=== PATIENT | female | born 1955 | race Caucasian/White ===

== ENCOUNTER 2024-02-09 14:03 | Emergency (ER) | payer MEDICARE, MEDICAID, SELFPAY ==
[2024-02-09 14:05] VITALS: BP 124/83; PULSE 76; RESP 18; TEMP 36.2; O2SAT 97; BMI 25.5
--- NOTE | 2024-02-09 14:42 | EKG12_ITS ---
Test Reason : GENERAL Blood Pressure : / mmHG Vent. Rate : 068 BPM Atrial Rate : 068 BPM P-R Int : 150 ms QRS Dur : 080 ms QT Int : 414 ms P-R-T Axes : 071 -22 062 degrees QTc Int : 440 ms Normal sinus rhythm Low voltage QRS Borderline ECG Confirmed by MILA CARL, XENA ([id number]), book editor ISMAEL RAHMAN ([id number]) on 02/10/2024 10:20:41 AM Referred By: Confirmed By:XENA ZARAGOZA MD
--- NOTE | 2024-02-09 14:45 | EX.ED.DYSGE1 ---
HPI History of Present Illness Chief Complaint: Dizziness Narrative Narrative: 68-year-old female presenting with vertiginous dizziness symptoms. She states it started this morning when she woke up and she turned her head she noted the room was bending and she had difficulty getting to the bathroom when she felt nauseous. This has been progressive throughout the day. Patient states she has had this once before but it did not last very long as she never had it evaluated. Denies known history of vertigo. She is concerned because she has a history of A-fib and was concerned she might be in atrial fibrillation. She denies chest pain or shortness of breath however. Denies extreme headache. She complains a lot of nausea. Patient states that she has had some problems with sugars in the past but nothing where she needed to be medicated. She states she ate a pancake with syrup this morning at 11 and he is concerned her sugars might be high. Patient states she is very thirsty. PFSH PFS Medical History Afib Carpal tunnel syndrome on both sides Prediabetes Home Medications ?Medication ?Instructions ?Recorded ?Last Taken ?Type meclizine 25 mg tablet 25 mg PO 4X/DAY PRN PRN Dizziness 02/09/24 Unknown Rx #20 tabs Allergy/AdvReac Type Severity Reaction Status Date / Time codeine Allergy Anaphylaxis Verified 02/09/24 14:05 Penicillins Allergy Anaphylaxis Verified 02/09/24 14:05 Family History Other Myocardial infarction Social History Smoking Status: Never smoker ROS ROS ED Constitutional Constitutional ED: Denies chills, fever(s) or sweats Eyes Eyes: Denies blurry vision or change in vision ENT ENT ED: Reports other Details: Vertiginous dizziness ; Denies ear pain or sore throat Cardiovascular Cardiovascular: Denies chest pain, palpitations or racing heartbeat Respiratory/Chest Respiratory/Chest: Denies cough, dyspnea or sputum Gastrointestinal Gastrointestinal: Reports nausea; Denies abdominal pain, constipation, diarrhea or vomiting Genitourinary Genitourinary ED: Denies dysuria, hematuria or urinary frequency Musculoskeletal Musculoskeletal: Denies arthralgias, myalgias or neck pain Integumentary Denies abscess, Abrasions or rash Neurologic Neurologic: Denies headache(s), paresthesias or weakness Psychiatric Psychiatric: Denies anxiety, depression, suicidal ideation or suicidal thoughts Endocrine Endocrinology: Denies polydipsia or polyuria EXAM Physical Exam Const Vital Signs: 02/09/24 14:05 02/09/24 14:42 02/09/24 16:00 Temperature 97.1 F L Temperature Source Temporal Pulse Rate 76 81 Respiratory Rate 18 18 Blood Pressure 124/83 H 104/66 Blood Pressure Mean 96 78 Pulse Ox 97 96 Oxygen Delivery Method Room Air Room Air Room Air Positive well nourished General Appearance ED: NAD; Negative for pallor HEENT Reports moist mucous membranes HEENT Narrative: Positive Francesca-Hallpike Eyes Eyes Narrative: Nystagmus noted on exam left [place]-Hallpike General Eye ED: Yes pale conjunctiva Resp normal respiratory effort and clear to auscultation bilaterally Auscultation: Negative for rales, rhonchi or wheezes Cardio regular rate and regular rhythm GI normal to inspection, nondistended, normoactive bowel sounds Neuro oriented x3 and CN's II-XII intact bilaterally Sensorium / Orientation: alert Motor Exam: strength 5/5 throughout Psych mental status grossly normal Skin no rashes or lesions noted General Skin Exam: Negative for jaundice or pallor MDM MDM MDM Narrative Medical decision making narrative: Patient presenting with vertiginous dizziness. She is also concerned about her blood sugar and A-fib. Differential includes A-fib, dysrhythmia, dehydration, anemia, electrolyte abnormalities, hyperglycemia, hypoglycemia, vertigo, pneumonia. CBC will be obtained to assess white blood cell count, hemoglobin, platelets. BMP to assess renal function, electrolytes, glucose. High-sensitivity troponin and EKG to assess for ischemia/dysrhythmia. Chest x-ray to rule out pneumonia. IV line was established. Patient given meclizine and Phenergan. Patient was given a liter normal saline. I do not believe she needs a CT of her brain as she has no focal neuro deficits or lateralizing signs or symptoms. Will reevaluate after medicating. EKG shows a normal sinus rhythm at 60 bpm without ischemic change or dysrhythmia interpreted by myself. Chest x-ray interpreted by myself shows no acute cardiopulmonary process. Radiologist interprets this and agrees. CBC shows normal white blood cell count at 4.8. Hemoglobin 13.9. Platelets normal at 217. Renal function electrolytes within normal limits. High-sensitivity troponin less than 3. Glucose was normal at 98. On reevaluation patient is able to ambulate her dizziness is improved. I will discharge home with meclizine I feel she has benign positional vertigo. Return precautions were discussed. Impression: 1. Benign positional vertigo 2. Nausea Lab Data Labs: Laboratory Results - last 24 hr 02/09/24 02/09/24 15:00 15:37 WBC 4.8 RBC 4.70 Hgb 13.9 Hct 42.4 MCV 90.2 MCH 29.6 MCHC 32.8 RDW Std Deviation 43.2 RDW Coeff of Rosalba 13.0 Plt Count 217 MPV 9.4 Immature Gran % (Auto) 0.000 Neut % (Auto) 42.4 L Lymph % (Auto) 45.7 H Burnet % (Auto) 9.6 Eos % (Auto) 1.5 Baso % (Auto) 0.8 Absolute Neuts (auto) 2.0 Absolute Lymphs (auto) 2.19 Nucleated RBC % 0 Sodium 138 Potassium 3.6 Chloride 104 Carbon Dioxide 25.0 Anion Gap 9 BUN 14 Creatinine 0.76 Estim Creat Clear Calc 67.89 Est GFR (MDRD) Af Amer 97 Est GFR (MDRD) Non-Af 80 BUN/Creatinine Ratio 18.4 Glucose 98 Calcium 9.6 Troponin I High Sens < 3 L POC Glucose 84 Radiography Diagnostic Testing: Clinical Impression(s) from Imaging Studies Chest X-Ray 02/09/24 15:15 IMPRESSION: No acute abnormality is seen. Electronically Signed: Ziggy Smith MD at 15:37 EDT , Discharge Plan Triage Chief Complaint: Dizziness ED Provider: Salazar Delgado Dx/Rx/DC Orders Instructions: ED BPV Vertigo Prescriptions: New meclizine 25 mg tablet 25 mg PO 4X/DAY PRN PRN (Reason: Dizziness) Qty: 20 0RF Primary Care Provider: SAMANTHA QUILES MD Referrals: SAMANTHA QUILES MD [Other] Print Language: Ethiopian Disposition Disposition: Home, Self Care
--- NOTE | 2024-02-09 14:54 | NURSING ---
NO OLD EKGS
[2024-02-09 15:14] LABS: Absolute Lymphocyte Count 2.19 X10^3/uL (0.83-4.51); Basophil# 0.04 X10^3/uL; Basophil% 0.8 % (0-1); Eosinophil# 0.07 X10^3/uL; Eosinophils% 1.5 % (0-5); Hematocrit 42.4 % (37-47); Hemoglobin 13.9 g/dL (12.0-15.0); Lymphocyte # 2.19 X10^3/ul (0.83-4.51); Lymphocyte % 45.7 % (19-41); Mean Corp Hgb Conc 32.8 g/dL (32-36); Mean Corpuscular Hgb 29.6 pg (27.0-32.0); Mean Corpuscular Volume 90.2 fL (81-99); Mean Platelet Vol. 9.4 fl (6.2-12.0); Monocyte# 0.46 X10^3/uL; Monocyte% 9.6 % (0-10); NRBC Flagged by Analyzer 0 % (0-5); Neutrophil # 2.03 X10^3/uL (2.7-7.7); Neutrophil % 42.4 % (47-70); Platelet Count 217 K/mm3 (150-450); RBC Distribution Width SD 43.2 fl (35.1-43.9); White Blood Count 4.8 K/mm3 (4.4-11.0)
[2024-02-09] MEDS: Meclizine HCl 25 MG Tablet PO (15:14)
--- NOTE | 2024-02-09 15:15 | RAD_ITS ---
STUDY: X-RAY CHEST REASON FOR EXAM: Female, 68 years old. Chest pain TECHNIQUE: Single AP portable view of the chest. COMPARISON: None. FINDINGS: EKG electrodes are seen. The lungs are clear and expanded. There is no demonstrated pleural abnormality. Normal size heart. Normal mediastinum and maria elena. Normal visualized pulmonary arteries. There is atherosclerotic calcification of the aortic arch with tortuosity. There are diffuse degenerative changes of the visualized thoracic spine. There is degenerative osteoarthritis of the bilateral shoulders. There is no demonstrated abnormality of the visualized soft tissue structures of the upper abdomen. RAD/Chest 1 View (Portable) IMPRESSION: No acute abnormality is seen. Electronically Signed: Ziggy Smith MD at 15:37 EDT ,
[2024-02-09] MEDS: proMETHazine 25 MG/ML Syringe 12.5 MG IM (15:16)
[2024-02-09] MEDS: 0.9% Normal Saline (1000mL) 1,000 ML 999 ML IV (15:17)
--- NOTE | 2024-02-09 15:54 | NURSING ---
NO OLD EKGS
[2024-02-09 15:59] LABS: Bedside Glucose 84 mg/dL (74-106)
[2024-02-09 16:00] VITALS: BP 104/66; PULSE 81; RESP 18; O2SAT 96
[2024-02-09 16:16] LABS: Anion Gap 9 (5-15); BUN 14 mg/dL (7-18); BUN/Creat Ratio 18.4 RATIO (10-20); Calcium,Total 9.6 mg/dL (8.5-10.1); Chloride 104 mmol/L (98-107); Creatinine, Serum 0.76 mg/dL (0.55-1.02); EST Glomerular Filtration Rate 80 mL/min (>60); Est Glom Filt Rate - Afr Amer 97 mL/min (>60); Estimated Creatinine Clearance 67.89 ml/min; Glucose 98 mg/dL (74-106); Potassium 3.6 mmol/L (3.5-5.1); Sodium Level 138 mmol/L (136-145); Troponin-I HS < 3 pg/mL (3.0-54.0)
[2024-02-09 16:17] VITALS: O2SAT 96
[2024-02-09 17:07] VITALS: BP 125/62; PULSE 73; RESP 16; TEMP 36.8; O2SAT 97
== END 2024-02-09 17:08 | disposition home or self-care (01) ==
PROVIDERS: Emergency Provider Student in an Organized Health Care Education/Training Program; Visit Provider Student in an Organized Health Care Education/Training Program
DX: H81.10 Benign paroxysmal vertigo, unspecified ear (principal); R73.03 Prediabetes
CPT/HCPCS: 71045; 80048; 82962; 84484; 85025; 93005; 96360; 96372; 99284; J7030